=== PATIENT | female | born 2000 | race Caucasian/White ===

== ENCOUNTER 2020-02-13 12:04 | Emergency (ER) | payer OTHER ==
[~2020-02-13] VITALS: Ht 160 cm; Wt 72.6 kg
[2020-02-13] MEDS ORDERED: PROVENTIL S2 MG/5 ML PO (12:21)
== END 2020-02-13 12:43 | disposition home or self-care (01) ==
LOC: ER 12:04
DX: J03.90 Acute tonsillitis, unspecified (principal); B08.5 Enteroviral vesicular pharyngitis

== ENCOUNTER 2022-12-06 17:05 | Emergency (ER) | payer OTHER ==
[~2022-12-06] VITALS: Ht 152.4 cm; Wt 73.5 kg
[~2022-12-06 17:05] MED LIST: PROVENTIL S2 MG/5 ML PO
== END 2022-12-06 22:03 | disposition home or self-care (01) ==
LOC: ER 17:05
DX: N76.0 Acute vaginitis (principal); R30.0 Dysuria